=== PATIENT | male | born 1970 | race Caucasian/White ===

== ENCOUNTER 2017-02-13 22:53 | Emergency (ER) | payer SELFPAY ==
[~2017-02-13] VITALS: Ht 180.3 cm; Wt 83.5 kg
[2017-02-13 23:20] VITALS: BP 187/95
--- NOTE | 2017-02-13 23:23 | PHYS DOC ---
Adult General Chief Complaint Chief Complaint: DENTAL PROBLEM [facility] HPI Patient is a 46 year old male presents to emergency department complaining of dental pain. He was seen on for Tylenol for the same dental pain and was provided with amoxicillin as well as hydrocodone 10 tablets. Patient states that he is out of his pain medication and is here for more pain medicine. Patient denies any fever, chills or any nausea or vomiting. Patient states since he has ran out of the hydrocodone he is only been using Tylenol for the pain and discomfort. Review of Systems Review of Systems Constitutional: Denies fever or chills [] Eyes: Denies change in visual acuity, redness, or eye pain [] HENT: Denies nasal congestion or sore throat. Complaint of dental pain Respiratory: Denies cough or shortness of breath [] Cardiovascular: No additional information not addressed in HPI [] GI: Denies abdominal pain, nausea, vomiting, bloody stools or diarrhea [] : Denies dysuria or hematuria [] Musculoskeletal: Denies back pain or joint pain [] Integument: Denies rash or skin lesions [] Neurologic: Denies headache, focal weakness or sensory changes [] Physical Exam Physical Exam Constitutional: Well developed, well nourished, no acute distress, non-toxic appearance. [] HENT: Normocephalic, atraumatic, bilateral external ears normal, oropharynx moist, no oral exudates, nose normal. Bilateral tympanic membranes appear to be normal. Right lower back tooth is broken off does not appear to have an abscess noted. No drainage or discharge noted from the site. Eyes: PERRLA, EOMI, conjunctiva normal, no discharge. [] Neck: Normal range of motion, no tenderness, supple, no stridor. [] Cardiovascular:Heart rate regular rhythm, no murmur [] Lungs & Thorax: Bilateral breath sounds clear to auscultation [] Skin: Warm, dry, no erythema, no rash. [] Back: No tenderness Extremities: No tenderness, no cyanosis, no clubbing, ROM intact, no edema. [] Neurologic: Alert and oriented X 3, normal motor function, normal sensory function, no focal deficits noted. [] Psychologic: Affect normal, judgement normal, mood normal. [] EKG EKG [] Radiology/Procedures Radiology/Procedures [] Course & Med Decision Making Course & Med Decision Making Pertinent Labs and Imaging studies reviewed. (See chart for details) Offered patient pain medication here in the emergency department. Spoke with patient regards to using ibuprofen 800 mg every 8 hours at home. Also explain his to take as with food to prevent abdominal upset. Also patient states that he has a dentist appointment on Thursday. She will be discharged home in stable condition recommended flossing and warm salt water gargles. Patient agrees with discharge instructions treatment regimens and follow-up recommendations. Signs and symptoms to return back to emergency department has been provided. [] Dragon Disclaimer Dragon Disclaimer This electronic medical record was generated, in whole or in part, using a voice recognition dictation system. Departure Departure Impression: Primary Impression: Pain, dental Disposition: HOME, SELF-CARE Condition: STABLE Patient Instructions: Dental Pain, [id number] Additional Instructions: Activity as tolerated. Continue your antibiotics as prescribed on the . Keep your dental appointment that you have on Thursday. Ibuprofen 800 mg every 8 hours with food. Stop taking few develop upset stomach. Return back to the emergency department for signs and symptoms of become worse. DEVON AMADO [employer] Feb 13, 2017 23:23
[2017-02-13] MEDS ORDERED: HYDROCODONE/APAP 5/325MG TABLET. PO ONE (23:45)
== END 2017-02-13 23:35 | disposition home or self-care (01) ==
LOC: ER 22:53
DX: K08.89 Other specified disorders of teeth and supporting structures (principal)
CPT/HCPCS: 99282